=== PATIENT | female | born 1990 ===

== ENCOUNTER 2023-03-26 06:35 | Inpatient (IN) | payer OTHER ==
[~2023-03-26] VITALS: Ht 165.1 cm; Wt 3.2 kg
[2023-03-26] MEDS ORDERED: PRENATAL TABLE1 EAC1 PO (07:43)
[2023-03-26] MEDS ORDERED: IRON18 MG PO (07:43)
[2023-03-26] MEDS ORDERED: SYNTHROID200 MCG PO (07:44)
== END 2023-03-28 15:30 | disposition home or self-care (01) | DRG 788 ==
LOC: OB/GYN 06:35 → LDR 06:35 → O/R 13:40 → OB/GYN 15:13
PROVIDERS: Obstetrics & Gynecology Gynecology; ADMIT Obstetrics & Gynecology; ATTEND Obstetrics & Gynecology
PROC: 4A1HXCZ Monitoring of Products of Conception, Cardiac Rate, External Approach (ICD-10-PCS; 2023-03-26)
PROC: 10D00Z1 Extraction of Products of Conception, Low, Open Approach (ICD-10-PCS; principal; 2023-03-26 10:15)
DX: O34.211 Maternal care for low transverse scar from previous cesarean delivery (principal); Z3A.37 37 weeks gestation of pregnancy; Z37.0 Single live birth; Z20.822 Contact with and (suspected) exposure to COVID-19